=== PATIENT | female | born 1970 | race Asian ===

== ENCOUNTER 2019-08-07 12:11 | Outpatient (CLI) | payer BC ==
[~2019-08-07] VITALS: Ht 154.9 cm; Wt 65.3 kg
[2019-08-07 12:17] VITALS: BP 110/70
[2019-08-07] MEDS ORDERED: HYDROCHLOROTH12.5 MG ORAL (13:58)
[2019-08-07] MEDS ORDERED: EXFORGE 5-3201 EACH ORAL (13:58)
--- NOTE | 2019-08-07 19:00 | Consultation ---
DATE OF CONSULTATION: 08/07/2019 CONSULTING PHYSICIAN: Spike Bravo M.D. CHIEF COMPLAINT: GERD, screening colonoscopy evaluation. 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 She has apparently complained of chronic GERD symptoms, on and off gets PPI, which helps her, but at this time, it is getting worse. Last endoscopy many years ago and she was told that she had hiatal hernia and gastritis. Also, she needs screening colonoscopy evaluation. PAST MEDICAL HISTORY: 1. GERD. 2. Hypertension. 3. Diverticulosis. 4. IBS. PAST SURGICAL HISTORY: Appendectomy. MEDICATIONS: Amlodipine, hydrochlorothiazide, Tums, Zantac. Please see medication reconciliation list. ALLERGIES: To ibuprofen. FAMILY HISTORY: Mother had possible pancreatitis or pancreatic cancer. Father had coronary artery disease. SOCIAL HISTORY: The patient denies any tobacco, alcohol, or IV drug abuse. REVIEW OF SYSTEMS: Positive for GERD and bloating. PHYSICAL EXAMINATION: VITAL SIGNS: Temperature 97.4, blood pressure is 110/77, pulse is 82, and respirations 20. HEENT: Normocephalic and atraumatic. Sclerae anicteric. NECK: Supple. No evidence of obvious lymphadenopathy. CARDIOVASCULAR: Regular rhythm. Plus S1, S2. LUNGS: Clear to auscultation bilaterally. ABDOMEN: Positive bowel sounds. Soft and nontender. No rebound. No guarding. No peritoneal sign. EXTREMITIES: No cyanosis. No clubbing. No edema. ASSESSMENT AND PLAN: This is a 49-year-old female with history of chronic GERD and needs endoscopy. The patient was given for now to use omeprazole 40 mg daily until we do an endoscopy. She also needs colonoscopy. The patient was given instruction for colonoscopy. Risks and benefits of the procedure were explained to her. We will schedule when authorization is obtained. Spike Bravo M.D. DR: I[place] JOB#: [id number] CC:
== END 2019-08-07 15:52 | disposition home or self-care (01) ==
LOC: PAN 12:11
DX: K21.9 Gastro-esophageal reflux disease without esophagitis (principal); I10 Essential (primary) hypertension; K57.90 Diverticulosis of intestine, part unspecified, without perforation or abscess without bleeding; K58.9 Irritable bowel syndrome, unspecified; Z90.89 Acquired absence of other organs; R14.0 Abdominal distension (gaseous); Z79.899 Other long term (current) drug therapy
CPT/HCPCS: G0463

== ENCOUNTER 2019-11-18 07:53 | Day surgery (SDC) | payer BC ==
[2019-11-18] VITALS (8 sets, daily range): BP systolic 110–146; BP diastolic 73–86
[~2019-11-18] VITALS: Ht 154.9 cm; Wt 65.3 kg
[~2019-11-18 07:53] MED LIST: CHOLEST OFF450 MG PO; EXFORGE 5-3201 EACH ORAL; HYDROCHLOROTH12.5 MG ORAL; LR 1000ml 1,000 ML IVLG SCH; MULTIVITAMINS1 EA11 ORAL
[2019-11-18] MEDS ORDERED: Midazolam 2mg/2ml Inj ONE (08:36)
[2019-11-18] MEDS ORDERED: fentaNYL 100 mcg/2 mL IV ONE (08:36)
[2019-11-18] MEDS ORDERED: LR 1000ml ONE (09:00)
--- NOTE | 2019-11-18 09:00 | Anethesia Preoperative Eval ---
Anesthesia Pre-op PMH/ROS General Date of Evaluation: Nov 18, 2019 Time of Evaluation: 08:57 Anesthesiologist: John ASA Score: ASA 2 Mallampati Score Class I : Soft palate, uvula, fauces, pillars visible Class II: Soft palate, uvula, fauces visible Class III: Soft palate, base of uvula visible Class IV: Only hard plate visible Mallampati Classification: Class II Surgeon: Shelly Diagnosis: Abdominal pain Surgical Procedure: EGD Colonoscopy Anesthesia History: none Family History: no anesthesia problems Allergies: Coded Allergies: IBUPROFEN (Verified Allergy, Unknown, 08/07/19) Medications: see eMAR Patient NPO?: Yes Past Medical History Cardiovascular: Reports: HTN - well controled Pulmonary: Denies: asthma, COPD, PAO, other Gastrointestinal/Genitourinary: Reports: GERD - mild; Denies: CRI, ESRD, other Neurologic/Psychiatric: Reports: depression/anxiety Endocrine: Denies: DM, hypothyroidism, steroids, other HEENT: Denies: cataract (L), cataract (R), glaucoma, TUNICA-BILOXI (L), TUNICA-BILOXI (R), other Hematology/Immune: Denies: anemia, DVT, bleeding disorder, other Musculoskeletal/Integumentary: Denies: OA, RA, DJD, DDD, edema, other PMH Narrative: as above PSxH Narrative: Appendectomy, , LEEP Anesthesia Pre-op Phys. Exam Physician Exam Last Vital Signs Date Time Temp Pulse Resp B/P (MAP) Pulse Ox O2 Delivery O2 Flow Rate FiO2 11/18/19 08:40 Room Air 11/18/19 08:35 98.4 74 18 121/74 96 Constitutional: NAD Neurologic: CN 2-12 intact Cardiovascular: RRR, no M/R/G Respiratory: CTA Gastrointestinal: S/NT/ND Airway Exam Mallampati Score: Class II MO: full Neck: flexible ROM: full Teeth: intact Dentures: no upper, no lower Anesthesia Pre-op A/P Studies Pre-op Studies: EKG - NSR Risk Assessment & Plan Assessment: ASA 2 Plan: MAC Status Change Before Surgery: Drew Cheng MD Nov 18, 2019 09:00
--- NOTE | 2019-11-18 09:03 | Pre-Procedure Note/Attestation ---
Pre-Procedure Note/Attestation Complete Prior to Procedure Planned Procedure: not applicable Procedure Narrative: EGD and colonoscopy Indications for Procedure Pre-Operative Diagnosis: GERD, screening colon Attestation I attest that I discussed the nature of the procedure; its benefits; risks and complications; and alternatives (and the risks and benefits of such alternatives ), prior to the procedure, with the patient (or the patient's legal financial services sales representative). I attest that, if there was a reasonable possibility of needing a blood transfusion, the patient (or the patient's legal financial services sales representative) was given the [facility] standardized written summary, pursuant to the [place] Blood Safety Act ([place] Health and Safety Code # 1645, as amended). I attest that I re-evaluated the patient just prior to the surgery and that there has been no change in the patient's H&P, except as documented below: Spike Bravo MD Nov 18, 2019 09:03
--- NOTE | 2019-11-18 09:04 | Short Stay Surgery H&P ---
History of Present Illness History of Present Illness Chief Complaint sceening colon GERD HPI Faustina Winters is a 49 year old female who was admitted on for Gerd, Colon Screening Patient History Allergies: Coded Allergies: IBUPROFEN (Verified Allergy, Unknown, 08/07/19) PAST MEDICAL HISTORY: (1) HTN (hypertension) Medication History Scheduled Amlodipine/Valsartan (Exforge 5-320 Mg Tablet), 1 TAB ORAL DAILY, (Reported) Hydrochlorothiazide* (Hydrochlorothiazide*), 12.5 MG ORAL DAILY, (Reported) Multivitamin (Multivitamins), 1 CAP ORAL DAILY, (Reported) Plant Stanol Denise (Cholest Off), 450 MG PO DAILY, (Reported) Review of Systems Cardiovascular: Reports: no symptoms Respiratory: Reports: no symptoms Skeletal: Reports: no symptoms Gastrointestinal: Reports: gastro esophageal reflux disease Genitourinary: Reports: no symptoms Neurologic: Reports: no symptoms Endocrine: Reports: no symptoms Hematologic: Reports: no symptoms Physical Exam Vital Signs Last Vital Signs Date Time Temp Pulse Resp B/P (MAP) Pulse Ox O2 Delivery O2 Flow Rate FiO2 11/18/19 08:40 Room Air 11/18/19 08:35 98.4 74 18 121/74 96 Skin: normal HENT: normal Heart: normal Lungs: normal Abdomen: normal Extremities: normal Plan Plan of Care esophagogastroduodenoscopy and colonoscopy Attestation Are the patient's medical conditions optimized for surgery? Attestation Response: yes Spike Bravo MD Nov 18, 2019 09:04
--- NOTE | 2019-11-18 09:25 | Endoscopy Procedure Note ---
Endoscopy Procedure Note General Indication for Procedure: screening colon, GERD Procedures Performed: EGD, colonoscopy Operative Findings/Diagnosis: gastritis, multiple polyps Specimen: yes Pt Tolerated Procedure Well: Yes Estimated Blood Loss: none Anesthesia Anesthesiologist: sheyla Anesthesia: MAC Inserted Devices Implant(s) used?: No Quality Quality of Bowel Preparation: Good Did scope reach the cecum?: Yes Was there any complications?: No GI Core Measures 50 yrs or older w/o bx or poly: No 10yrs. F/U recommended: Yes If not recommended, why?: Above average risk 18 years or older w/prev. colo: No Spike Bravo MD Nov 18, 2019 09:25
--- NOTE | 2019-11-18 09:37 | Immediate Post-Op Evaluation ---
Immediate Post-Op Evalulation Immediate Post-Op Evalulation Procedure: EGD Colonoscopy Date of Evaluation: Nov 18, 2019 Time of Evaluation: 09:36 IV Fluids: 600 Blood Products: none Estimated Blood Loss: none Urinary Output: none Blood Pressure Systolic: 113 Blood Pressure Diastolic: 84 Pulse Rate: 62 Respiratory Rate: 18 O2 Sat by Pulse Oximetry: 99 Temperature (Fahrenheit): 97.7 Pain Score (1-10): 1 Nausea: No Vomiting: No Complications none Patient Status: reacts, patent, none Hydration Status: adequate Drew Lopez MD Nov 18, 2019 09:37
--- NOTE | 2019-11-18 10:50 | 48 Hour Post Anesthesia Eval ---
Post Anesthesia Evaluation Procedure: EGD Colonoscopy Date of Evaluation: Nov 18, 2019 Blood Pressure Systolic: 136 0: 72 Pulse Rate: 68 Respiratory Rate: 18 Temperature (Fahrenheit): 97.6 O2 Sat by Pulse Oximetry: 98 Airway: patent Nausea: No Vomiting: No Pain Intensity: 1 Hydration Status: adequate Cardiopulmonary Status: stable Mental Status/LOC: patient returned to baseline Follow-up Care/Observations: n/a Post-Anesthesia Complications: none Follow-up care needed: ready to discharge Drew Lopez MD Nov 18, 2019 10:50
--- NOTE | 2019-11-18 12:15 | Procedure Note ---
DATE OF PROCEDURE: 11/18/2019 SURGEON: Spike Bravo MD. PROCEDURE: Upper endoscopy with biopsy and colonoscopy with biopsy. ANESTHESIA: Per Dr. Lopez. INDICATIONS: Screening colonoscopy, chronic GERD. REASON FOR PROCEDURE: The procedure, risks, benefits, and possible consequences, including hemorrhage, aspiration, perforation and infection, and alternative treatments, were explained to the patient/legal guardian by Dr. Spike Bravo and the patient/legal guardian understood and accepted these risks. PROCEDURE IN DETAIL: After informed consent was obtained and the patient was adequately sedated, Olympus upper endoscope was advanced from the mouth into second portion of the duodenum and retroflexion was performed in the stomach. The patient has some mild atrophic gastritis and multiple gastric polyps, most probably fundic gland polyps. Random biopsy from antrum was obtained to rule out H. pylori infection. The rest of upper endoscopic examination grossly looked within normal limits. At this time, the upper endoscope was retrieved and the patient was turned over for colonoscopy. First, rectal exam was performed, which was positive for internal hemorrhoids. Then, the scope was advanced from rectum into the cecum, then subsequently to terminal ileum. Quality of prep was very good. The patient had scattered diverticulosis in the left colon. She had multiple hyperplastic-looking polyps in the rectosigmoid area, four of them were biopsied. The rest of the examination grossly within normal limits. Retroflexion of rectum performed showed evidence of internal hemorrhoids. SUMMARY OF FINDINGS: 1. Mild atrophic gastritis. 2. Multiple gastric polyps, most probably fundic gland polyps. 3. Internal hemorrhoids. 4. Left-sided diverticulosis. 5. Few rectosigmoid polyps, status post biopsy. RECOMMENDATIONS: Follow biopsy results and treat accordingly. Repeat colonoscopy in 5 years. Spike Bravo M.D. DR: [place] JOB#: [id number] CC:
== END 2019-11-18 11:10 | disposition home or self-care (01) ==
LOC: GAS 07:53
DX: Z12.11 Encounter for screening for malignant neoplasm of colon (principal); K21.9 Gastro-esophageal reflux disease without esophagitis; K29.50 Unspecified chronic gastritis without bleeding; K63.5 Polyp of colon; K64.8 Other hemorrhoids; K57.90 Diverticulosis of intestine, part unspecified, without perforation or abscess without bleeding; I10 Essential (primary) hypertension; Z79.899 Other long term (current) drug therapy; Z88.6 Allergy status to analgesic agent; Z90.89 Acquired absence of other organs; F32.9 Major depressive disorder, single episode, unspecified; F41.9 Anxiety disorder, unspecified
CPT/HCPCS: 43239; 45380; 94003; J2250; J2704; J3010; J7120; 94150